=== PATIENT | male | born 1995 | race Caucasian/White ===

== ENCOUNTER 2024-08-17 16:37 | Emergency (ER) | payer OTHER ==
[2024-08-17 17:21] VITALS: BP 163/100; PULSE 103; RESP 16; TEMP 98.6; BMI 31.4
[2024-08-17] MEDS ORDERED: CEPHALEXIN MONOHYDRATE 500 MG CAPSULE (UD) ONE (17:29)
[2024-08-17] MEDS ORDERED: DIPHTH,PERTUSS(ACELL),TET 0.5 ML DISP.SYRIN IM ONE (17:29)
[2024-08-17] MEDS: CEPHALEXIN MONOHYDRATE 500 MG CAPSULE (UD) PO ONE (17:30)
[2024-08-17] MEDS: DIPHTH,PERTUSS(ACELL),TET 0.5 ML DISP.SYRIN IM ONE (17:36)
== END 2024-08-17 18:53 | disposition home or self-care (01) ==
LOC: FER 16:37
PROC: 3E0234Z Introduction of Serum, Toxoid and Vaccine into Muscle, Percutaneous Approach (ICD-10-PCS; principal; 2024-08-17)
DX: S61.411A Laceration without foreign body of right hand, initial encounter (principal); W25.XXXA Contact with sharp glass, initial encounter; Z23 Encounter for immunization
CPT/HCPCS: 73130-TC-RT-FY; 90715; 99284-25